=== PATIENT | female | born 1925 | race Caucasian/White ===

== ENCOUNTER 2016-08-30 07:31 | Emergency (ER) | payer MEDICARE ==
--- NOTE | 2016-08-30 08:03 | ED ---
SOB HPI - General Chief Complaint: Shortness of Breath Stated Complaint: sob, recent hx of heart attack Time Seen by Provider: 08/30/16 07:45 Source: patient, RN notes reviewed Mode of arrival: wheelchair Limitations: no limitations - History of Present Illness Initial Comments: This is a 89-year-old female with a history of a recent non-ST elevation FL that was apparently diagnosed after the fact with the patient had chest discomfort last week but did not seek medical attention who is here today for evaluation of exertional dyspnea which is getting progressively worse. She denies any fevers chills nausea vomiting sweats or chest pain. Her daughter states she has been wheezing occasionally. She has no prior history of lung disease. She reports no other complaints other than the dyspnea on exertion which is out of the norm for her. MD Complaint: shortness of breath - Related Data Home Medications Medication Instructions Recorded Confirmed Atenolol [Tenormin] 25 mg PO DAILY 08/30/16 08/30/16 Calcium Carbonate [Calcium] 1,200 mg PO DAILY 08/30/16 08/30/16 Cholecalciferol [Vitamin D3] 1,000 unit PO DAILY 08/30/16 08/30/16 Cyanocobalamin (Vitamin B-12) 2,500 mcg PO DAILY 08/30/16 08/30/16 [Vitamin B12] Fish Oil/Dha/Epa [Fish Oil 1,200 1 cap PO DAILY 08/30/16 08/30/16 mg Fish Oil] Gluc/Ramiro-MSM#1/C/Rj/Caden/Bor 1 tab PO DAILY 08/30/16 08/30/16 [Glucosamine-Chondroitin Tablet] Hydrochlorothiazide [Hydrodiuril] 25 mg PO DAILY 08/30/16 08/30/16 Isosorbide Mononitrate ER [Imdur] 30 mg PO DAILY 08/30/16 08/30/16 Lecithin, Soy [Lecithin] 400 mg PO DAILY 08/30/16 08/30/16 Lisinopril [Prinivil] 10 mg PO BID 08/30/16 08/30/16 Loratadine 10 mg PO DAILY PRN 08/30/16 08/30/16 Lutein 20 mg PO DAILY 08/30/16 08/30/16 Magnesium Oxide [Mag-Ox] 250 mg PO DAILY 08/30/16 08/30/16 Meclizine [Antivert] 12.5 mg PO DAILY PRN 08/30/16 08/30/16 Multivits-Min/Iron/FA/Lutein 1 tab PO DAILY 08/30/16 08/30/16 [Centrum Silver Women Tablet] Potassium 99 mg PO DAILY 08/30/16 08/30/16 Pravastatin Sodium [Pravachol] 80 mg PO HS 08/30/16 08/30/16 Timolol 0.5% Ophth Soln [Timoptic 1 drop BOTH EYES BID 08/30/16 08/30/16 0.5% Ophth Soln] Ubidecarenone [Co Q-10] 200 mg PO DAILY 08/30/16 08/30/16 Vitamin E (Dl,Tocopheryl Acet) 400 unit PO DAILY 08/30/16 08/30/16 [Vitamin E] quiNIDine SULFATE 300 mg PO DAILY 08/30/16 08/30/16 Allergies Allergy/AdvReac Type Severity Reaction Status Date / Time codeine AdvReac Severe Hallucinati Verified 08/30/16 08:27 ons Anesthetics - Amide Type AdvReac Nausea & Verified 08/30/16 08:27 Vomiting Review of Systems ROS Statement: Those systems with pertinent positive or pertinent negative responses have been documented in the HPI. ROS Other: All systems not noted in ROS Statement are negative. Past Medical History Past Medical History: CVA/TIA, Hyperlipidemia, Hypertension Additional Past Medical History / Comment(s): heart murmur History of Any Multi-Drug Resistant Organisms: None Reported Additional Past Surgical History / Comment(s): vascular Past Psychological History: No Psychological Hx Reported Smoking Status: Former smoker Past Alcohol Use History: Occasional Past Drug Use History: None Reported General Exam - General Exam Comments Initial Comments: This is a well-developed well-nourished awake alert oriented 3 female Limitations: no limitations General appearance: alert, in no apparent distress Head exam: Present: atraumatic, normocephalic, normal inspection Eye exam: Present: normal appearance, PERRL, EOMI. Absent: scleral icterus, conjunctival injection, periorbital swelling ENT exam: Present: normal exam, mucous membranes moist Neck exam: Present: normal inspection. Absent: tenderness, meningismus, lymphadenopathy Respiratory exam: Present: normal lung sounds bilaterally. Absent: respiratory distress, wheezes, rales, rhonchi, stridor Cardiovascular Exam: Present: regular rate, normal rhythm, normal heart sounds. Absent: systolic murmur, diastolic murmur, rubs, gallop, clicks GI/Abdominal exam: Present: soft, normal bowel sounds. Absent: distended, tenderness, guarding, rebound, rigid Extremities exam: Present: normal inspection, full ROM, normal capillary refill. Absent: tenderness, pedal edema, joint swelling, calf tenderness Back exam: Present: normal inspection Neurological exam: Present: alert, oriented X3, CN II-XII intact Psychiatric exam: Present: normal affect, normal mood Skin exam: Present: warm, dry, intact, normal color. Absent: rash Course Vital Signs 08/30/16 08/30/16 08/30/16 07:34 07:50 07:55 Temperature 97.8 F Pulse Rate 62 55 L Respiratory 18 14 14 Rate Blood Pressure 122/61 104/61 O2 Sat by Pulse 99 99 Oximetry 08/30/16 08/30/16 08/30/16 09:27 09:40 10:59 Temperature 97.8 F Pulse Rate 60 61 64 Respiratory 14 16 16 Rate Blood Pressure 147/73 145/71 148/67 O2 Sat by Pulse 100 100 97 Oximetry Medical Decision Making - Medical Decision Making I did a long discussion with patient family regarding findings I also discussed the case with Dr. Andrews. Patient will be discharged with follow-up tomorrow in the office. Patient was encouraged to increase her oral fluid content. She is already on magnesium supplements. - Lab Data Result diagrams: 08/30/16 08:07 08/30/16 08:07 Lab Results 08/30/16 08/30/16 08/30/16 Range/Units 08:07 08:07 08:07 WBC 8.0 (3.8-10.6) k/uL RBC 4.53 (3.80-5.40) m/uL Hgb 13.6 (11.4-16.0) gm/dL Hct 40.9 (34.0-46.0) % MCV 90.1 (80.0-100.0) fL MCH 30.0 (25.0-35.0) pg MCHC 33.3 (31.0-37.0) g/dL RDW 13.0 (11.5-15.5) % Plt Count 230 (150-450) k/uL Neutrophils % 71 % Lymphocytes % 20 % Monocytes % 5 % Eosinophils % 2 % Basophils % 1 % Neutrophils # 5.6 (1.3-7.7) k/uL Lymphocytes # 1.6 (1.0-4.8) k/uL Monocytes # 0.4 (0-1.0) k/uL Eosinophils # 0.1 (0-0.7) k/uL Basophils # 0.1 (0-0.2) k/uL PT (9.0-12.0) sec INR (<1.1) APTT (22.0-30.0) sec D-Dimer (<0.60) mg/L FEU Sodium 144 (137-145) mmol/L Potassium 3.7 (3.5-5.1) mmol/L Chloride 108 H (98-107) mmol/L Carbon Dioxide 23 (22-30) mmol/L Anion Gap 13 mmol/L BUN 31 H (7-17) mg/dL Creatinine 1.04 (0.52-1.04) mg/dL Est GFR (MDRD) Af Amer >60 (>60 ml/min/1.73 sqM) Est GFR (MDRD) Non-Af 50 (>60 ml/min/1.73 sqM) Glucose 90 (74-99) mg/dL Calcium 9.5 (8.4-10.2) mg/dL Magnesium 1.4 L (1.6-2.3) mg/dL Total Bilirubin 0.6 (0.2-1.3) mg/dL AST 24 (14-36) U/L ALT 31 (9-52) U/L Alkaline Phosphatase 36 L (38-126) U/L Total Creatine Kinase 22 L (30-135) U/L CK-MB (CK-2) 1.4 (0.0-2.4) ng/mL CK-MB (CK-2) Rel Index 6.4 Troponin I 0.015 (0.000-0.034) ng/mL NT-Pro-B Natriuret Pep pg/mL Total Protein 6.3 (6.3-8.2) g/dL Albumin 3.9 (3.5-5.0) g/dL 08/30/16 08/30/16 Range/Units 08:07 08:07 WBC (3.8-10.6) k/uL RBC (3.80-5.40) m/uL Hgb (11.4-16.0) gm/dL Hct (34.0-46.0) % MCV (80.0-100.0) fL MCH (25.0-35.0) pg MCHC (31.0-37.0) g/dL RDW (11.5-15.5) % Plt Count (150-450) k/uL Neutrophils % % Lymphocytes % % Monocytes % % Eosinophils % % Basophils % % Neutrophils # (1.3-7.7) k/uL Lymphocytes # (1.0-4.8) k/uL Monocytes # (0-1.0) k/uL Eosinophils # (0-0.7) k/uL Basophils # (0-0.2) k/uL PT 10.4 (9.0-12.0) sec INR 1.0 (<1.1) APTT 22.4 (22.0-30.0) sec D-Dimer 1.79 H (<0.60) mg/L FEU Sodium (137-145) mmol/L Potassium (3.5-5.1) mmol/L Chloride (98-107) mmol/L Carbon Dioxide (22-30) mmol/L Anion Gap mmol/L BUN (7-17) mg/dL Creatinine (0.52-1.04) mg/dL Est GFR (MDRD) Af Amer (>60 ml/min/1.73 sqM) Est GFR (MDRD) Non-Af (>60 ml/min/1.73 sqM) Glucose (74-99) mg/dL Calcium (8.4-10.2) mg/dL Magnesium (1.6-2.3) mg/dL Total Bilirubin (0.2-1.3) mg/dL AST (14-36) U/L ALT (9-52) U/L Alkaline Phosphatase (38-126) U/L Total Creatine Kinase (30-135) U/L CK-MB (CK-2) (0.0-2.4) ng/mL CK-MB (CK-2) Rel Index Troponin I (0.000-0.034) ng/mL NT-Pro-B Natriuret Pep 1480 pg/mL Total Protein (6.3-8.2) g/dL Albumin (3.5-5.0) g/dL - EKG Data -: EKG Interpreted by Me EKG shows normal: sinus rhythm (Sinus rhythm rate of 60 DE interval 222 QRS duration 76 daily since QTC of 440/440 first-degree AV block evidence of possible septal infarct of undetermined age.) - Radiology Data Radiology results: report reviewed (I did review the imaging and reports no acute findings. There is some nodularity noted on the CAT scan no evidence of PE.), image reviewed Disposition Clinical Impression: Dyspnea, Dehydration, Hypomagnesemia Disposition: HOME SELF-CARE Condition: Good Instructions: Dyspnea (ED), Dehydration (ED), Hypomagnesemia (ED)
[2016-08-30 08:21] LABS: Basophils # (A) 0.1 k/uL (0-0.2); Basophils % (A) 1 %; CHCM 33.4; Eosinophils # (A) 0.1 k/uL (0-0.7); Eosinophils % (A) 2 %; HCT 40.9 % (34.0-46.0); HDW 2.34; HGB 13.6 gm/dL (11.4-16.0); Luc # (Auto) 0.18; Luc % (Auto) 2; Lymphocytes # (A) 1.6 k/uL (1.0-4.8); Lymphocytes % (A) 20 %; MCHC 33.3 g/dL (31.0-37.0); MCV 90.1 fL (80.0-100.0); Mean Platelet Volume 7.7; Monocytes # (A) 0.4 k/uL (0-1.0); Monocytes % (A) 5 %; Neutrophils # (A) 5.6 k/uL (1.3-7.7); Neutrophils % (A) 71 %; RBC 4.53 m/uL (3.80-5.40); WBC (Perox) 7.84
[2016-08-30 08:35] LABS: ALT 31 U/L (9-52); AST 24 U/L (14-36); Alkaline Phosphatase 36 U/L (38-126); Anion Gap 13 mmol/L; Blood Urea Nitrogen 31 mg/dL (7-17); Calcium 9.5 mg/dL (8.4-10.2); Carbon Dioxide 23 mmol/L (22-30); Chloride 108 mmol/L (98-107); Glucose 90 mg/dL (74-99); Magnesium 1.4 mg/dL (1.6-2.3); Non-African American GFR(MDRD) 50 (>60 ml/min/1.73 sqM); Potassium 3.7 mmol/L (3.5-5.1); Sodium 144 mmol/L (137-145); Total Bilirubin 0.6 mg/dL (0.2-1.3); Total Protein 6.3 g/dL (6.3-8.2)
[2016-08-30 08:42] LABS: Partial Thromboplastin Time 22.4 sec (22.0-30.0); Prothrombin Time 10.4 sec (9.0-12.0)
--- NOTE | 2016-08-30 08:45 | XR ---
EXAMINATION TYPE: XR chest 2V DATE OF EXAM: 08/30/2016 8:40 AM COMPARISON: NONE HISTORY: Difficulty in breathing. TECHNIQUE: Frontal and lateral views of the chest are obtained. FINDINGS: There is no focal air space opacity, pleural effusion, or pneumothorax seen. The cardiac silhouette size is upper limits of normal with mild atherosclerotic change in aortic knob. The osse ous structures are intact. IMPRESSION: No acute cardiopulmonary process.
[2016-08-30 08:54] LABS: Creatine Kinase MB 1.4 ng/mL (0.0-2.4); Troponin I 0.015 ng/mL (0.000-0.034)
[2016-08-30] MEDS ORDERED: SODIUM CHLORIDE 0.9% 500 ML IV STA (09:25)
[2016-08-30] MEDS ORDERED: SODIUM CHLORIDE 0.9% 1,000 ML IV STA (09:25)
[2016-08-30] MEDS ORDERED: RX INFO: IV CONTRAST WAS GIVEN 1 EACH MISC MISCELLANE PRN (09:26)
[2016-08-30 09:42] VITALS: RESP 16
--- NOTE | 2016-08-30 10:25 | CT ---
EXAMINATION TYPE: CT angio chest DATE OF EXAM: 08/30/2016 10:08 AM COMPARISON: NONE HISTORY: 89-year-old female with pain TECHNIQUE: Contiguous axial scanning of the chest performed with IV Contrast, patient injected with 8 0 mL of Visipaque 320. Coronal/sagittal MIP reconstructions performed. CT DLP: 130.8 mGycm Automated exposure control for dose reduction was used. FINDINGS: The heart is normal size without pericardial effusion. Mild coronary vessel calcifications are presen t in remarkable for coronary artery disease. Aorta is normal caliber with mild atherosclerotic arch calcifications and conventional arch vessel br anching anatomy. There is satisfactory opacification of the pulmonary arterial system without evidence for pulmonary e mbolus. - Biapical pleural parenchymal scarring, greater on the right. - Mild centrilobular emphysema. - 5 mm peripheral right upper lobe pulmonary nodule axial image 50. - Patchy atelectasis inferior right middle lobe and posterior right base. - Subpleural nodularity posterior right lower lobe axial image 95 and also within the lingula, for ex ample, axial image 77 through 92. Some of the nodules here measure up to 7 mm, axial image 88. - There are 2 adjacent pulmonary nodules in the left upper lobe measuring up to 6 mm, axial image 58 and 59. No consolidation or pleural effusion. Visualized upper abdomen shows a 2.6 cm cyst anterior hepatic dome and a subcentimeter hypodensity se gment too small for accurate CT characterization, likely additional cysts. Calcified granulomas are n oted within the spleen. Bones: No osseous destructive process. IMPRESSION: 1. NO EVIDENCE FOR PULMONARY EMBOLUS. 2. COPD WITH MILD EMPHYSEMA. 3. SOME CLUSTERED SUBPLEURAL NODULARITY POSTERIOR RIGHT LOWER LOBE AND TO A GREATER EXTENT WITHIN THE LINGULA. INFECTIOUS OR INFLAMMATORY PROCESS INCLUDING ATYPICAL INFECTIONS ARE A CONSIDERATION. 4. SOME OF THE NODULES MEASURE UP TO 7 MM, A 3 MONTH FOLLOW-UP EXAM IS RECOMMENDED TO REASSESS.
[2016-08-30] MEDS ORDERED: MAGNESIUM SULFATE-D5W PMX 1 GM in DEXTROSE/WATER 1 100ML.BAG IVPB ONE (10:30)
[2016-08-30 12:24] VITALS: BP 164/74; PULSE 63; TEMP 98.4
== END 2016-08-30 12:15 | disposition home or self-care (01) ==
LOC: EC 07:31
DX: R06.00 Dyspnea, unspecified (principal); E86.0 Dehydration; E83.42 Hypomagnesemia; I10 Essential (primary) hypertension; I25.2 Old myocardial infarction; E78.5 Hyperlipidemia, unspecified; Z87.891 Personal history of nicotine dependence; Z88.5 Allergy status to narcotic agent; Z88.4 Allergy status to anesthetic agent; Z79.899 Other long term (current) drug therapy; Z86.73 Personal history of transient ischemic attack (TIA), and cerebral infarction without residual deficits
CPT/HCPCS: 99285; 96365; 96361; 36415; 93005; 85379; 83880; 80053; 82550; 82553; 83735; 84484; 85025; 85610; 85730; 71020; 71275; Q9967; J3475